=== PATIENT | female | born 1995 | race Caucasian/White ===

== ENCOUNTER 2021-05-12 15:13 | Emergency (ER) | payer OTHER ==
--- NOTE | 2021-05-12 17:09 | CR ---
[id number] RAD/RAD Hand Left 2V EXAM: RAD Hand Left 2V CLINICAL DATA: TRAUMA COMPARISON: No previous similar exam is available. FINDINGS: No fracture or dislocation is seen. There is no radiopaque foreign body in the soft tissues. There is no air in the soft tissues. There is no cortical thickening or periosteal reaction either. IMPRESSION: NEGATIVE PLAIN FILM EXAM. Mickey Gaytan MD 05/12/21 0723 Thank you for allowing us to participate in the care of your patient.
--- NOTE | 2021-05-12 17:09 | CR ---
[id number] RAD/RAD Fingers Left EXAM: RAD Fingers Left CLINICAL DATA: TRAUMA COMPARISON: No previous similar exam is available. FINDINGS: No fracture or dislocation is seen. There is no radiopaque foreign body in the soft tissues. There is no air in the soft tissues. There is no cortical thickening or periosteal reaction either. IMPRESSION: NEGATIVE PLAIN FILM EXAM. Mickey Gaytan MD 05/12/21 [id number] Thank you for allowing us to participate in the care of your patient.
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
== END 2021-05-12 16:40 | disposition home or self-care (01) ==
LOC: VM.ED 15:13
DX: S63.615A Unspecified sprain of left ring finger, initial encounter (principal); R60.0 Localized edema; V87.8XXA Person injured in other specified noncollision transport accidents involving motor vehicle (traffic), initial encounter
CPT/HCPCS: 73130-LT; 73140-LT; 99283

== ENCOUNTER 2023-02-23 19:21 | Emergency (ER) | payer OTHER ==
[2023-02-23] MEDS ORDERED: Ibuprofen 200 MG Tab PO ONE (19:31)
== END 2023-02-23 19:40 | disposition home or self-care (01) ==
LOC: VM.ED 19:21
DX: S61.212A Laceration without foreign body of right middle finger without damage to nail, initial encounter (principal); W26.9XXA Contact with unspecified sharp object(s), initial encounter
CPT/HCPCS: 99283; A9270-GY

== ENCOUNTER 2024-05-18 22:28 | Emergency (ER) | payer OTHER ==
[2024-05-18 23:02] LABS: BASOPHILS PERCENT AUTO 0.4 % (0.2-1.2); EOSINOPHILS ABSOLUTE AUTO 0.2 x10^3/uL (0.0-0.5); EOSINOPHILS PERCENT AUTO 2.8 % (0.0-4.0); HEMATOCRIT 37.5 % (33.0-47.0); HEMOGLOBIN 13.4 g/dL (12.0-16.0); IMMATURE GRAN ABSOLUTE AUTO 0.01 x10^3/uL (0.00-0.07); LYMPHOCYTES PERCENT AUTO 40.5 % (25.0-50.0); MEAN CORPUSCULAR HEMOGLOBIN 30.9 pg (26.0-32.0); MEAN CORPUSCULAR HGB CONC 35.7 g/dL (32.0-36.0); MEAN CORPUSCULAR VOLUME 86.4 fL (78.0-93.0); MONOCYTES ABSOLUTE AUTO 0.6 x10^3/uL (0.0-0.8); MONOCYTES PERCENT AUTO 7.8 % (2.0-11.0); NEUTROPHILS ABSOLUTE AUTO 3.6 x10^3/uL (1.8-7.7); NEUTROPHILS PERCENT AUTO 48.4 % (50.0-80.0); PLATELET COUNT,PLT 323 x10^3/uL (130-400); RED BLOOD CELL COUNT 4.34 x10^6/uL (4.00-5.50); WHITE BLOOD CELL COUNT,WBC 7.4 x10^3/uL (4.0-10.0)
== END 2024-05-19 00:07 | disposition home or self-care (01) ==
LOC: VM.ED 22:28
DX: N92.1 Excessive and frequent menstruation with irregular cycle (principal); Z79.899 Other long term (current) drug therapy
CPT/HCPCS: 36415; 81025; 85025; 99283; 99284